=== PATIENT | male | born 1990 | race Hispanic/Latino ===

== ENCOUNTER 2023-08-07 14:51 | Emergency (ER) | payer OTHER, SELFPAY ==
[2023-08-07 15:00] VITALS: BP 118/77
--- NOTE | 2023-08-07 16:54 | ED.GENMED ---
History of Present Illness
<Deann Ching PA-C - Last Filed: 08/08/23 17:25>
General
Chief Complaint: Musculo-Skeletal Complaint
Source: patient
Exam Limitations: none
Time Seen by Provider: 08/07/23 16:11
Nursing documentation reviewed up to this point in time: agreed with
Travel History
Have you had any contact with someone who has COVID-19?: No
Do you have any symptoms of coronavirus? Fever > 100 degrees, chills, cough, shortness of breath, sore throat, loss of taste or smell, muscle aches, or headache?: No
History of Present Illness
History of Present Illness:
Patient is a 32 year old male presenting with atraumatic bilateral wrist and forearm pain. Patient states he initially noticed symptoms a few weeks ago in his left wrist and left forearm. He endorses the pain much worse with movement, specifically
pronation and supination at left wrist. He then noticed that approximately week ago he had similar pain in his right wrist, although not as severe. Patient does work in construction with frequent heavy lifting. Patient states pain is much worse
with heavy lifting. Patient has been taking ketorolac at home which does improve symptoms minimally. Patient denies any known trauma or inciting event
Patient denies any associated redness, fevers, chills, rashes, or recent known bug bites. Patient denies any joint pain elsewhere in his body
Past History
<Deann Ching PA-C - Last Filed: 08/08/23 17:25>
Past History
ED Past Medical History: Other (R testicular swelling/pain 3 episodes in past 2 years)
ED Past Surgical History: Other (wisdom teeth)
Social History
Tobacco: Non-smoker
Alcohol: None
Living: with roommate
Employment: Employed (construction)
Review of Systems
<Deann Ching PA-C - Last Filed: 08/08/23 17:25>
Review of Systems
Allergies reviewed?: Yes
All Other Systems: ROS reviewed and negative except as documented in HPI and ROS
Phy Exam
<Deann Ching PA-C - Last Filed: 08/08/23 17:25>
Physical Exam
Physical Exam:
Vitals: Patient's vital signs are stable
General: Patient is well appearing, no acute distress
Skin: Warm and dry, no rashes or lesions
Head: Normocephalic, atraumatic
Eyes: Sclera nonicteric. EOMs intact. No nystagmus.
Throat: Protecting airway
Neck: Normal ROM, no cervical spine tenderness, no meningismus
Cardiac: Regular rate and rhythm, no murmurs.
Pulm: Normal respiratory effort, no wheezes, rales, rhonchi heard on exam.
Abdomen: No abdominal tenderness.
Extremities: Tenderness to palpation noted to bilateral wrists and left forearm. No erythema, edema, or ecchymoses to bilateral upper extremities. No warmth noted to bilateral wrists. No bony abnormalities noted to bilateral upper extremities.
Great distal pulses. Sensation fully intact. Full range of motion of bilateral elbows and shoulders. Some limitations in flexion and extension's/pronation and supination at bilateral wrist due to pain.
Neuro: AAOx3. CN II-XII intact. No focal neurologic deficits.
Psychiatric: Normal affect.
Course
<Deann Ching PA-C - Last Filed: 08/08/23 17:25>
Orders/Labs/Results
Orders:
Orders
08/07/23 15:06
CR Forearm - Left 2 View Urgent
Comment:
Reason For Exam: pain
CR Wrist - Left Min 3 Views Urgent
Comment:
Reason For Exam: pain
08/07/23 15:08
CR Wrist - Right Min 2 Views Urgent
Comment:
Reason For Exam: pain
08/07/23 17:24
Splints/Slings/Crut- Treatment ONCE
Location: Left
Type of Splint: Orient Wrist
08/07/23 17:25
Ibuprofen [Motrin] 400 mg PO NOW STA
Vital Signs
Initial and Last Documented VS:
Initial Vital Signs
Temp Pulse Resp BP Pulse Ox
98.1 F 86 18 118/77 98
08/07/23 15:00 08/07/23 15:00 08/07/23 15:00 08/07/23 15:00 08/07/23 15:00
Last Documented Vital Signs
Temp Pulse Resp BP Pulse Ox
98.1 F 86 18 118/77 98
08/07/23 15:00 08/07/23 15:00 08/07/23 15:00 08/07/23 15:00 08/07/23 15:00
<Janeth Saini MD - Last Filed: 08/07/23 17:13>
Orders/Labs/Results
Orders:
Orders
08/07/23 15:06
CR Forearm - Left 2 View Urgent
Comment:
Reason For Exam: pain
CR Wrist - Left Min 3 Views Urgent
Comment:
Reason For Exam: pain
08/07/23 15:08
CR Wrist - Right Min 2 Views Urgent
Comment:
Reason For Exam: pain
08/07/23 17:24
Splints/Slings/Crut- Treatment ONCE
Location: Left
Type of Splint: Orient Wrist
08/07/23 17:25
Ibuprofen [Motrin] 400 mg PO NOW STA
Vital Signs
Initial and Last Documented VS:
Initial Vital Signs
Temp Pulse Resp BP Pulse Ox
98.1 F 86 18 118/77 98
08/07/23 15:00 08/07/23 15:00 08/07/23 15:00 08/07/23 15:00 08/07/23 15:00
Last Documented Vital Signs
Temp Pulse Resp BP Pulse Ox
98.1 F 86 18 118/77 98
08/07/23 15:00 08/07/23 15:00 08/07/23 15:00 08/07/23 15:00 08/07/23 15:00
<Deann Ching PA-C - Last Filed: 08/08/23 17:25>
MDM/Problems Addressed
Differential Diagnosis Includes:
Not limited to: Tendinitis, myositis, contusion, fracture, sprain, Lyme arthritis, doubt septic arthritis or gout, cellulitis
MDM/Problems Addressed:
32-year-old male presenting for evaluation of atraumatic bilateral wrist pain. Pain worse with movement, specifically pronation/supination at both right and left wrist. No fever, chills, or other systemic symptoms. No known rashes or recent bug
bites. Patient has no medical problems. Vital signs are stable. Physical exam as above. There is no obvious erythema, warmth, edema of bilateral upper extremities. There is some tenderness noted to bilateral wrists and forearm. No obvious bony
deformities. Great distal pulses in bilateral upper extremities. Normal sensation noted. No overlying warmth, redness, or rashes. She does have an acceptable range of motion and all joints of bilateral upper extremities.
X-rays of bilateral wrists and left forearm obtained in triage. Did review reports which show no evidence of acute fracture or dislocation. Given symptoms are bilateral without no overlying warmth, redness or signs of cellulitis�seriously doubt
septic joint or cellulitis. High suspicion for likely overuse injury from lifting heavy objects at work. Will give Motrin in emergency department. Will discharge with instructions to rest, ice, elevate, avoid lifting heavy objects for a week and
reevaluation. Will provide work note. Will provide orthopedic referral for further evaluation. Did reach out to scheduling office to connect patient primary care physician. Patient comfortable with plan. All questions answered
Chronic conditions affecting care:
N/A
Acute Exacerbation and/or Progression of Chronic Illness:
N/A
<Deann Ching PA-C - Last Filed: 08/08/23 17:25>
*Radiology
Radiology exam reviewed: preliminary read by ED provider and radiology read reviewed
*Pulse Oximetry
Patient hypoxic: no
*EKG
Interpreted by ED Provider?: NA
*[employer] Interpretation
Rate: [employer]- N/A
*Critical Care Note
Total Time (30-74mins, 75-104mins- exclusive of procedures): Not Applicable
ED Attending Note
<Deann Ching PA-C - Last Filed: 08/08/23 17:25>
-
Portions of this chart may have been created with voice recognition software.� Occasional wrong word or��sound alike� substitutions may have occurred due to the inherent limitations of voice recognition software.
<Janeth Saini MD - Last Filed: 08/07/23 17:13>
ED Attending Note
Patient seen and examined by attending physician: Yes
I performed the substantive portion of visit, reviewed & personally made and approve the management plan that is documented in note by myself or SAULO.: Yes
ED Attending Note:
Patient has mild soft tissue tenderness of left wrist and forearm. He also has tenderness of right wrist. Patient has had no fever, rash or fatigue to suggest Lyme disease. I am very suspicious for overuse injury given his job of carrying heavy
things. It is doubtful to be septic clinically, and it is a bilateral so a septic joint is very unlikely. There are no areas of erythema to suggest cellulitis. Patient will be instructed to not lift anything heavy, ice, rest and Motrin to see if
symptoms improve. Patient be encouraged to follow-up with his doctor in about a week
Discharge Plan
Departure
Patient Disposition: Home (Routine Discharge)
Date of Disposition: 08/07/23
Time of Disposition: 17:36
Patient with high blood pressure during this ER visit?: No
Condition: Good
Covid-19: Not Applicable
Discharge Problem:
Bilateral arm pain
Instructions: Tendinopathy (DC), Overuse Injuries (DC)
Prescriptions:
No Action
ciprofloxacin HCl 500 mg tablet
500 mg PO BID Qty: 14 0RF
doxycycline hyclate 100 mg capsule
100 mg PO BID Qty: 14 0RF
Referrals:
Damian Perez MD [Active] - Call in 1-3 days for appt
UNKNOWN - PT DOES,NOT KNOW [Family Provider] -
Stand Alone Forms: Return to Work
Activity Restrictions/Additional Instructions:
RETURN TO THE EMERGENCY DEPARTMENT WITH ANY FEVERS, CHILLS, SIGNIFICANT REDNESS OR SWELLING IN BILATERAL WRISTS, NUMBNESS/TINGLING IN BILATERAL WRISTS, CHEST PAIN, SHORTNESS OF BREATH, HEADACHE OR NECK PAIN, WORSENING IN CURRENT SYMPTOMS, OR ANY
OTHER CONCERNS
-As discussed�I suspect that this pain is likely related to an overuse injury from work. You should both wrist in splint, apply ice, and rest for the next week. You should take 400 mg of Motrin every 6 hours as needed for pain.
-As discussed that she will follow-up with an orthopedic doctor for further evaluation/management.
Interventions
Interventions:
*Risk Screen - Suicide Last Done: 08/07/23 15:00
*General Assessment Last Done: 08/07/23 15:00
*Neglect/Abuse Screening Last Done: 08/07/23 15:00
ED- Fall Risk Assessment Last Done: 08/07/23 15:00
*ED COVID-19 Vaccine History Last Done: 08/07/23 15:00
*Nursing Disposition Last Done: 08/07/23 18:05
ED-Musculoskeletal Assessment Last Done: 08/07/23 18:34
Discharge Date and Time
Discharge Date/Time: 08/07/23 18:00
Print Language: CHINESE
[2023-08-07] MEDS: MOTRIN 400 MG PO (17:38)
== END 2023-08-07 18:00 | disposition home or self-care (01) ==
LOC: EMR 14:51
PROVIDERS: EMERGENCY PHYSICIAN Emergency Medicine
DX: M79.632 Pain in left forearm (principal); M79.631 Pain in right forearm; M25.532 Pain in left wrist; M25.531 Pain in right wrist
CPT/HCPCS: 99283; 73090; 73100; 73110